=== PATIENT | female | born 1960 | race Caucasian/White ===

== ENCOUNTER 2022-03-23 09:06 | Observation (INO) ==
--- NOTE | 2022-03-09 09:30 | PAT Medication Instructions ---
Medication Instructions Date of Service March 09, 2022 Home Medications calcium carbonate 600 mg calcium (1,500 mg) tablet (Calcium) 600 mg PO QAM cholecalciferol (vitamin D3) 25 mcg (1,000 unit) capsule (Vitamin D3) 25 mcg PO QAM cyanocobalamin (vitamin B-12) 1,000 mcg tablet (Vitamin B-12) 1,000 mcg PO QAM folic acid 1 mg tablet 1 mg PO QAM multivitamin 1 tab PO QAM DO NOT take the morning of surgery calcium carbonate 600 mg calcium (1,500 mg) tablet (Calcium) 600 mg PO QAM cholecalciferol (vitamin D3) 25 mcg (1,000 unit) capsule (Vitamin D3) 25 mcg PO QAM cyanocobalamin (vitamin B-12) 1,000 mcg tablet (Vitamin B-12) 1,000 mcg PO QAM folic acid 1 mg tablet 1 mg PO QAM multivitamin 1 tab PO QAM Other Notes NOTHING TO EAT OR DRINK AFTER MIDNIGHT. If you have any questions please call us at [phone] or [phone] or [phone] or [phone]
--- NOTE | 2022-03-18 11:16 | Anesthesiology Consultation ---
Date of Service March 18, 2022 Assessment & Plan (1) Encounter for pre-operative examination: - PCP clearance S 03/16/22: "...pre op evaluation for proposed knee replacement. Overall feeling well, no new complaints...medically optimized for proposed procedure..." - Outpatient joint assessment: Patient is currently scheduled for inpatient pathway. Case discussed with Dr. Abbasi, if re-evaluated pending system levels during current pandemic/surgeon requests outpatient pathway, patient is acceptable candidate for outpatient joint program from anesthesia standpoint pending surgeon's office assessment of pt motivation/support/completion of same day joint program preop requirements. Chart Review Chart Review: Acceptable Risk for Surgery and Patient seen in Pre Admission Testing Teaching & Discussion Pre-Anesthesia Teaching/Discussion Notes: Instructed NPO after midnight before surgery, except medications with 15 cc of water. Medication instructions provided according to the PAT guidelines. History Surgery Operation Date: 03/23/22 14:45 Proposed Procedures p Right Total Knee Arthroplasty - Neri Riggs MD Height/Weight Height: 5 ft 6 in Weight: 90.718 kg Allergies Allergy/AdvReac Type Severity Reaction Status Date / Time No Known Allergies Allergy Verified 03/09/22 07:39 Medications Home Medications Medication Instructions Recorded Confirmed Last Taken calcium carbonate 600 mg calcium 600 mg PO QAM 03/09/22 03/09/22 Unknown (1,500 mg) tablet (Calcium) cholecalciferol (vitamin D3) 25 25 mcg PO QAM 03/09/22 03/09/22 Unknown mcg (1,000 unit) capsule (Vitamin D3) cyanocobalamin (vitamin B-12) 1,000 mcg PO QAM 03/09/22 03/09/22 Unknown 1,000 mcg tablet (Vitamin B-12) folic acid 1 mg tablet 1 mg PO QAM 03/09/22 03/09/22 Unknown multivitamin 1 tab PO QAM 03/09/22 03/09/22 Unknown Past Medical History Medical History (Updated 03/18/22 @ 11:18 by Shira Goff PA-C) Factor 5 Leiden mutation, heterozygous no current medications. History of COVID-29 May 2021. mild flu symptoms. no current issues. Prediabetes Pulmonary embolism 2001 & 2004. had taken coumadin, no problems since. Sleep apnea hx --- weightloss, reports subsequent negative study and d/c CPAP Patient denies h/o stroke, seizures, heart attack, heart failure, HTN or blood transfusions. Exercise / Class Metabolic Activity II 4-5 Yardwork/Stairs/Walk up hill (denies CP or SOB with 1 FOS) Past Family History Family History Mother FHx: pulmonary embolism Grandmother (Maternal) FHx: pulmonary embolism Other No family history of adverse response to anesthesia Past Surgical History Surgical History History of bilateral tubal ligation History of cholecystectomy History of colonoscopy History of Nanci-en-Y gastric bypass S/P right knee arthroscopy S/P tonsillectomy Past Anesthesia History No Hx of Anesthesia Complications and No Family Hx of Anesthesia Complications History of PONV No Hx of PONV and No Hx of Motion Sickness Social History Smoking Status: Never smoker Do You Dip or Chew Tobacco: No Hx Alcohol Use: Yes Alcohol type: wine alcohol intake frequency: a few times a month Hx Substance Use: No substance use type: does not use Review of Systems Patient denies chest pain, shortness of breath, dyspnea on exertion, reflux, fever, chills, cough, wheezing, or palpitations. Physical Exam Vital Signs Vitals BP 126/78 P 58 TEMP 97.8 SP02 99% on RA RESP 17 Physical Full cervical extension range of motion without pain TMD 3.5 finger breadths Mallampati Score 3 Dentition: removable partial plate front lower; denies Lungs: normal respiratory effort. Clear throughout to auscultation, no adventitious breath sounds Cardiac: regular rate and rhythm, no murmurs noted Carotid arteries: negative bruit bilat Lab Results Anesthesia Preop Results Results Anesthesia Widget: WBC 6.45 K/ul (4.8-10.8) 03/18/22 Hgb 13.2 g/dl (12.0-16.0) 03/18/22 Hct 41.0 % (34.1-44.9) 03/18/22 Plt 279 K/uL (130-400) 03/18/22 Na 140 mmol/L (136-145) 03/18/22 K 4.0 mmol/L (3.5-5.1) 03/18/22 Cl 105 mmol/L (98-107) 03/18/22 CO2 31 mmol/L (21-32) 03/18/22 BUN 17 mg/dl (6-23) 03/18/22 Creat 0.74 mg/dl (0.6-1.2) 03/18/22 Glucose Level 115 mg/dl (70-99(Fasting)) H 03/18/22 PT 10.5 Seconds (9.0-12.0) 03/18/22 PTT 25.7 Seconds (21.0-31.0) 03/18/22 INR 1.0 (0.9-1.1) 03/18/22 HA1c 5.6 % (4.5-5.6) 03/18/22 Urine Color Yellow 03/18/22 Urine Appearance Clear (Clear) 03/18/22 Urine pH 5.0 (4.5-7.5) 03/18/22 Urine Specific [place] 1.021 (1.000-1.030) 03/18/22 Urine Protein Negative (Negative) 03/18/22 Urine Glucose (UA) Negative (Negative) 03/18/22 Urine Ketones Negative (Negative) 03/18/22 Urine Blood Negative (Negative) 03/18/22 Urine Nitrite Negative (Negative) 03/18/22 Urine Bilirubin Negative (Negative) 03/18/22 Urine Urobilinogen Negative (Negative) 03/18/22 Urine Leukocyte Esterase Negative (Negative) 03/18/22 Blood Type A Positive 03/18/22 Antibody Screen NEGATIVE 03/18/22 Testing Electrocardiogram Date: 05/15/21 NSR, rate [address] abnormality Chest X-Ray Date: 03/18/22 Upper abdominal surgical clips are incidentally noted. Lung volumes are normal. Lungs are clear. There is no pneumothorax or pleural effusion. Cardiac size is n ormal. Mediastinal contours are normal. There is no evidence for pulmonary edema. IMPRESSION: No acute cardiopulmonary findings. COVID-19 Risk Screen Screening Information COVID-19 Screen Date: 03/18/22 Exposure 21 Days Family/Household +COVID Last 21 Days: No Exposure 10 Days Any COVID Exposure Last 10 Days: No Symptoms Last 10 Days Experienced COVID Sx Last 10 Days: No + COVID 0-90 Days COVID + in Last 0-90 Days: No
--- NOTE | 2022-03-22 16:44 | History & Physical Report ---
Date of Service March 22, 2022 Assessment & Plan (1) Primary osteoarthritis of right knee: Plan: Treatment options discussed with patient. She has failed conservative measures. Risks, benefits and alternatives to surgery including but not limited to infection, DVT, pain, stiffness, need for revision surgery, damage to blood vessels, damage to nerves, PE, , were discussed with the patient and they wish to proceed. Plan on right total knee arthroplasty scheduled for 03/23/22 at [facility] with Dr. Riggs. All questions answered. Will plan on outpatient PT post op. Xarelto 10mg daily for 1 mo post op for DVT prophylaxis. She will follow up in the office post operatively. History of Present Illness Chief Complaint: Right knee pain Primary Care Provider: NO PCP 61yo female with PMHx significant for PE, factor V leiden who presents with ongoing right knee pain. Pain is interfering with her daily activity. She has failed conservative measures and would like to proceed with surgical intervention. Patient denies headaches, sweats, fevers, chills, double vision, blurred vision, cough, sore throat, dysphagia, chest pain, sob, wheezing, n/v/d/c, numbness, tingling, fatigue, urinary symptoms, mood disorders. ROS positive for right knee pain and stiffness. Allergies Allergy/AdvReac Type Severity Reaction Status Date / Time No Known Allergies Allergy Verified 03/09/22 07:39 Home Medications Medication Instructions Recorded Confirmed Type calcium carbonate 600 mg calcium 600 mg PO QAM 03/09/22 03/09/22 History (1,500 mg) tablet (Calcium) cholecalciferol (vitamin D3) 25 25 mcg PO QAM 03/09/22 03/09/22 History mcg (1,000 unit) capsule (Vitamin D3) cyanocobalamin (vitamin B-12) 1,000 mcg PO QAM 03/09/22 03/09/22 History 1,000 mcg tablet (Vitamin B-12) folic acid 1 mg tablet 1 mg PO QAM 03/09/22 03/09/22 History multivitamin 1 tab PO QAM 03/09/22 03/09/22 History Past Med/Surg History Medical History (Updated 03/22/22 @ 16:43 by Sergio Yadav PA-C) Factor 5 Leiden mutation, heterozygous no current medications. History of COVID-29 May 2021. mild flu symptoms. no current issues. Prediabetes Pulmonary embolism 2001 & 2004. had taken coumadin, no problems since. Sleep apnea hx --- weightloss, reports subsequent negative study and d/c CPAP Surgical History History of bilateral tubal ligation History of cholecystectomy History of colonoscopy History of Nanci-en-Y gastric bypass S/P right knee arthroscopy S/P tonsillectomy Family History Mother FHx: pulmonary embolism Grandmother (Maternal) FHx: pulmonary embolism Other No family history of adverse response to anesthesia Social History Smoking Status: Never smoker Second Hand Exposure: No; Hx Alcohol Use: Yes Alcohol type: wine Hx Substance Use: No Preferred Language: [place] Communication Ability: Effective Cook Chef Required: No Beliefs That Will Affect Care: None Current Living Situation: Spouse Feels Safe at Home: Yes Assistive Devices: Denture - Lower Review of Systems All systems reviewed & are unremarkable except as noted in HPI & below Physical Exam Constitutional: well developed and well nourished; no acute distress Eyes: PERRL, conjunctivae normal, anicteric sclerae ENMT: external ear and nose normal, oropharynx normal Neck: trachea midline, no thyromegaly Respiratory: normal respiratory effort, lungs clear to auscultation Cardiovascular: RRR, no murmur, no edema Musculoskeletal: Right knee: Varus alignment. Mild effusion. Medial joint line tenderness. ROM 5-100 degrees. Stable to valgus and varus stress. Skin: no rashes, warm and dry Neurologic: patellar DTR's 2+ bilat, sensation intact Psychiatric: A+Ox3, euthymic affect Results & Data ([facility]) Diagnostic Findings Right knee radiographs demonstrate varus alignment, significant joint space n arrowing medial compartment, bone on bone. There is tricompartmental degenerative changes with periarticular osteophyte formation.
[~2022-03-23 09:06] MED LIST: ACETAMINOPHEN 500 MG TAB PO SCH; BUPIVACAINE 0.5 % 5 MG/1 ML PF 10ML VIAL ONE; CeleBREX 200 MG CAP PO SCH; FAMOTIDINE 20 MG TAB PO SCH; GABAPENTIN 600 MG DOSE PO SCH; LR 500ML BOLUS, THEN 15ML/HR IV SCH; METOCLOPRAMIDE HCL 10 MG TABLET PO SCH; ROPIVACAINE 0.5% 5 MG/ML 30 ML VIAL ONE; ROPIVACAINE 0.5% HCL/PF 150 MG, BUPIVACAINE 0.75% MPF 20 ML, EPINEPHrine 30MG/30ML (OR ... INFIL SCH; TRANEXAMIC ACID 1,000 MG **IV Intra-op IV SCH; TRANEXAMIC ACID 1,000 MG **IV Pre-op IV SCH; ceFAZolin 2000MG 2,000 MG/15 ML SYR IV SCH; dexAMETHasone 4 MG TAB PO SCH
--- NOTE | 2022-03-23 09:33 | History & Physical Bridge Note ---
Date of Service March 23, 2022 History & Physical Bridge Note I have examined the patient, reviewed the History & Physical and in the interval since the performance of the History & Physical I have noted the following changes of clinical significance: no changes noted
[2022-03-23] MEDS ORDERED: DEXAMETHASONE SOD INJ 4 MG/ML VIAL ONE (09:55)
[2022-03-23] MEDS ORDERED: MIDAZOLAM HCL 1 MG/ML 2ML VIAL ONE (09:55)
[2022-03-23] MEDS ORDERED: LIDOCAINE 2% MPF LOCAL 5 ML VIAL INFIL ONE (09:55)
[2022-03-23] MEDS ORDERED: fentaNYL citrate 100 MCG/2 ML VIAL ONE (09:55)
[2022-03-23] MEDS ORDERED: PROPOFOL IV EMULSION 10 MG/ML 20 ML VIAL IV ONE ×3 (09:55→12:21)
[2022-03-23] MEDS ORDERED: ORTHO JOINT ANESTHETIC ONE (10:39)
[2022-03-23] MEDS ORDERED: ATROPINE SULFATE 0.1 MG/ML 10ML SYR IV PRN (10:42)
[2022-03-23] MEDS ORDERED: HYDROmorphone INJ 1 MG/ML SYRINGE IV PRN (10:42)
[2022-03-23] MEDS ORDERED: KETOROLAC 30 MG/ML VIAL IV PRN (10:42)
[2022-03-23] MEDS ORDERED: ePHEDrine sulfate 50 MG/ML AMP IV PRN (10:42)
[2022-03-23] MEDS ORDERED: ONDANSETRON INJ 2 MG/ML 2 ML VIAL IV PRN ×2 (10:42→15:30)
[2022-03-23] MEDS ORDERED: ePHEDrine sulfate 50 MG/ML SYR ONE (11:19)
--- NOTE | 2022-03-23 12:54 | Operative Report ---
Post Operative Report Pre & Post Diagnosis Operation Date: 03/23/22 11:50 Pre-Op Diagnosis: Right Knee Osteoarthritis Post-Op Diagnosis: Right Knee Osteoarthritis I identified the patient and participated in the time-out.: Yes Procedure Operation Date: 03/23/22 11:50 Actual Procedures p Right Total Knee Arthroplasty(Right), lateral release, mya superficial wound VAC- Neri Riggs MD Surgeon Neri Riggs MD Internal Communications Manager Slava Yadav Estimated Blood Loss 5 Findings Consistent with Post-Op Diagnosis Specimens Bone cuts Drains 2 Hemovac Anesthesia Type MAC Spinal Regional Complications none Disposition Accompanied Patient To Recovery: No Disposition: Recovery Room Indications 61-year-old female with end-stage bilateral knee osteoarthritis failed conservative management. Radiographs of the right knee pertinent to this procedure demonstrate a varus knee [id number] medial compartment and moderately advanced patellofemoral osteoarthritis. Description of Procedure Patient was taken to the operating room placed supine on the operating table and anesthetized under spinal MAC regional block anesthesia. Exam under anesthesia demonstrated 0 through 125 degrees range of motion no effusion no instability varus knee. A pneumatic tourniquet was placed about the moderately obese thigh of the right lower extremity. The right lower extremity was prepped and draped in usual sterile fashion. The leg was elevated exsanguinated with an Esmarch bandage and the pneumatic tourniquet was raised to 325 mm mercury. An anterior incision was made across the right knee. The skin was incised longitudinally subcutaneous flaps were elevated and an incision was made through the medial retinaculum extending up into the mid third of the quadriceps tendon and extended down to the medial tibial tubercle. Intra-articular findings demonstrated medial compartment osteoarthritis [id number] medial compartment with grade 3-4 changes on the patella with intra-articular osteophytes on the patella and peripheral osteophytes. Grade 3 trochlea osteoarthritis. The knee was exposed by excising the infrapatellar fat pad, excising the meniscal remnants and anterior cruciate ligament. Any inflamed synovial tissue was resected. The fat pad over the anterior femur was resected for placement of the component in that area. The lateral synovial bands were release. The femur was exposed. The custom femoral cutting block was pinned in position. The distal femoral cutting block was applied. The distal femoral cut was made with the oscillating saw. The size 8, 4-in-1 cutting block was placed. The anterior and posterior chamfer cuts were made. The knee was extended and a subperiosteal peel lateral release was performed around the patella. The patella width was measured and width was reproduced using freehand cut technique. The 32 millimeter symmetrical patella was used. 3 drill holes are made for the pegs. The tibia was exposed. A custom tibial cutting block was positioned and drill holes were made for the cutting guide. Cutting guide was placed and the proximal cut was made with the oscillating saw. All osteophytes were resected. The lamina proj mgr was used to assess ligamentous balance and the ligaments were balanced in extension and flexion. The tibia was reexposed and measured for a size E tibial component. This was externally rotated in line with the tibial tubercle and the fixation pins were drilled. The proximal tibia was fashioned with the drill and punch. The size 8 CR femoral trial was inserted. The trial MC inserts were used. The 10 mm insert gave balanced ligaments through full range of motion. The patella tracked with some lateral tilt and slight lift off so a lateral release was performed preserving the synovium and the patella tracks centrally. the trials were removed. The orthomix anesthetic cocktail was injected per protocol. The knee was then copiously irrigated with pulsatile lavage saline solution. The final components were cemented with Refobacin bone cement. The final components were persona size 8 narrow CR right femoral component, right E tibial component, right 10 MC tibial polyethylene and 32 symmetrical patella. After the cement cured with the knee in full extension the Betadine soak was used per protocol. The knee joint was copiously irrigated with pulsatile lavage saline solution . 2 drains were brought out laterally and connected to a Hemovac. The quadriceps tendon and medial retinaculum were closed with interrupted [id number] #1 Vicryl sutures. The knee was taken through a full range of motion and repair was secure. Range of motion 0 through 135 degrees. The subcutaneous tissues were closed with 2-0 Vicryl sutures and skin was closed with strata fix suture and Prineo glue system. A mya superficial wound VAC was applied and the patient tolerated the procedure well. Slava MCCOY my physician legal administrative assistant to space for legal administrative assistant and was integral part and all aspects of the procedure, he assisted in soft tissue retraction, instrument management ,leg positioning, the closure, the mya wound VAC and will participate in the postoperative care of the patient. I attest to the content of the Intraoperative Record and any orders documented therein. Any exceptions are noted below.
--- NOTE | 2022-03-23 14:11 | XRay Report ---
XR knee RT 1 or 2V routine HISTORY: 61 years-old Female Surgical Post Op right knee total joint arthroplasty COMPARISON: None TECHNIQUE: 2 views the right knee FINDINGS: Total joint arthroplasty with patellar resurfacing. Anterior midline skin karissa are noted along wit h expected postoperative soft tissue swelling with deep tissue air. Surgical drainage catheter in jeyson ce. No acute fracture or unexpected opaque foreign body. IMPRESSION: Total joint arthroplasty with expected postoperative changes. ACT 112: Negative or not required by law. The above report was generated using voice recognition software. It may contain grammatical, syntax o r spelling errors. Electronically signed by: Tono Houston M.D. 03/23/2022 2:10 PM
--- NOTE | 2022-03-23 14:33 | Anesthesiology Progress Note ---
Date of Service March 23, 2022 Anesthesia Post Procedure Vital Signs Vital Signs: Temp Pulse Pulse Resp BP Pulse Ox O2 Del Method 03/23/22 14:20 36.4 C L 70 20 100/63 96 Nasal Cannula 03/23/22 14:10 66 16 104/57 L 95 Nasal Cannula 03/23/22 14:00 68 13 99/56 L 95 Nasal Cannula 03/23/22 13:50 68 17 102/59 L 95 Nasal Cannula 03/23/22 13:40 36.6 C 76 16 97/59 L 96 Room Air 03/23/22 09:47 36.3 C L 63 20 146/79 H 98 Room Air O2 Flow Rate 03/23/22 14:20 2 03/23/22 14:10 2 03/23/22 14:00 2 03/23/22 13:50 2 03/23/22 13:40 03/23/22 09:47 Transfer of Care Handoff Completed per policy Notes Mental Status: alert / awake / arousable Patient Amnestic to Procedure: Yes Nausea / Vomiting: adequately controlled Pain: adequately controlled Airway Patency, RR, SpO2: stable & adequate BP & HR: stable & adequate Hydration State: stable & adequate Neuraxial Anesthesia: was administered and sensory block is resolving Anesthetic Complications: no major complications apparent
[2022-03-23] MEDS ORDERED: MAGNESIUM HYDROXIDE SUSP 30 ML UDC PO PRN (15:30)
[2022-03-23] MEDS ORDERED: bisacodyL 10 MG SUPP PR PRN (15:30)
[2022-03-23] MEDS ORDERED: HYDROmorphone INJ 0.5 MG/0.5 ML SYR IV PRN (15:30)
[2022-03-23] MEDS ORDERED: NALOXONE HCL 0.4 MG/1 ML VIAL/CARP IV PRN (15:30)
[2022-03-23] MEDS ORDERED: METOCLOPRAMIDE HCL INJ 5 MG/ML 2 ML VIAL IV PRN (15:30)
[2022-03-23] MEDS ORDERED: SODIUM CHLORIDE 0.9% 1000ML 1,000 ML IV SCH (15:30)
[2022-03-23] MEDS: ACETAMINOPHEN 500 MG TAB PO SCH ×2 (16:41→20:37)
[2022-03-23] MEDS: ceFAZolin 2000MG 2,000 MG/15 ML SYR IV SCH (18:18)
[2022-03-23] MEDS: DOCUSATE SODIUM 100 MG CAP PO SCH (20:36)
[2022-03-23] MEDS: SENNA 8.6 MG TAB PO SCH (20:38)
[2022-03-24] MEDS: ceFAZolin 2000MG 2,000 MG/15 ML SYR IV SCH (03:29)
[2022-03-24] MEDS ORDERED: LR 500ML BOLUS, THEN 15ML/HR IV SCH (06:00)
[2022-03-24] MEDS ORDERED: ROPIVACAINE 0.5% HCL/PF 150 MG, BUPIVACAINE 0.75% MPF 20 ML, EPINEPHrine 30MG/30ML (OR ... INFIL SCH (06:00)
[2022-03-24] MEDS: ACETAMINOPHEN 500 MG TAB PO SCH ×3 (06:17→21:40)
--- NOTE | 2022-03-24 06:43 | Orthopedic Progress Note ---
Date of Service March 24, 2022 Assessment & Plan (1) Primary osteoarthritis of right knee: Plan: Postop day 1 right total knee arthroplasty -PT/OT -Pain management as written -A.m. labs are pending -DVT prophylaxis: SCDs, teds, Xarelto 10 mg daily -Discharge planning: Plan on discharge home with plans on attending outpatient PT. Plan on discharge home today as long as therapy goes well and patient remained stable, as well as if her ride is able to get to the hospital due to the weather. Admission and Anticipated Discharge Date Admission Date: March 23, 2022 Supervising Physician Co-Signing Physician Notes Patient seen and examined. Agree with DARIUS Yadav's note as above. Patient doing very well. Describes only 1 out of 10 pain in her knee after exercise. She is mobilizing on her own with a walker without difficulty. Unfortunately, her ride was not able to make it today due to the weather. Plan for discharge tomorrow. Subjective Patient is resting in bed comfortably. Pain well controlled currently. She has no other complaints. Denies chest pain, shortness of breath, dizziness/lightheadedness, nausea/vomiting/diarrhea. Review of Systems Review of Systems: All systems reviewed & are unremarkable except as noted in Subjective Physical Exam Physical Exam: Right knee: Dressing is clean, dry, intact. Toes mobile with good dorsiflexion. No calf tenderness. Able to do a straight leg raise. Distal neurovascular status and sensation intact. Results & Data ([facility]) Vital Signs (Past 12 Hours) Vital Signs Temp Pulse Resp BP Pulse Ox O2 Del Method 03/24/22 03:33 36.7 C 74 16 107/66 94 Room Air 03/23/22 22:11 36.7 C 73 18 106/66 95 Room Air
[2022-03-24] MEDS: CALCIUM CARBONATE 1250MG TAB PO SCH (08:24)
[2022-03-24] MEDS: FOLIC ACID 1 MG TAB PO SCH (08:25)
[2022-03-24] MEDS: CYANOCOBALAMIN (B-12) 500 MCG TABLET PO SCH (08:25)
[2022-03-24] MEDS: RIVAROXABAN 10 MG TABLET PO SCH (08:25)
[2022-03-24] MEDS: CeleBREX 200 MG CAP PO SCH (08:25)
[2022-03-24] MEDS: MULTIVITAMIN TAB PO SCH (08:25)
[2022-03-24] MEDS: CHOLECALCIFEROL 1,000 UNITS 25 MCG TAB PO SCH (08:25)
[2022-03-24] MEDS: DOCUSATE SODIUM 100 MG CAP PO SCH ×2 (08:26→19:32)
[2022-03-24] MEDS ORDERED: MULTIVITAMIN TAB PO SCH (09:00)
[2022-03-24 09:05] LABS: Hematocrit (blood only) 34.7 % (34.1-44.9); Hemoglobin 11.4 g/dl (12.0-16.0); Mean Corpuscular Hemoglobin 29.5 pg (25.0-34.0); Mean Corpuscular Hgb Conc 32.9 g/dL (32.0-36.0); Mean Corpuscular Volume 89.9 fL (80.0-100.0); Mean Platelet Volume 11.7 fL (9.4-12.3); Platelet Count 249 K/uL (130-400); RDW Coefficient of Variation 12.5 % (11.5-14.5); RDW Standard Deviation 40.6 fL (36.4-46.3); Red Blood Count 3.86 M/uL (3.93-5.22); White Blood Count 16.09 K/ul (4.8-10.8)
[2022-03-24 09:26] LABS: Calcium 8.3 mg/dl (8.5-10.1); Creatinine Clr Calc Pharmacy 87.2 ml/min; Est GFR (African American) 95.9 ml/min; Est GFR (Non-African American) 82.8 ml/min; Potassium 4.3 mmol/L (3.5-5.1)
[2022-03-24] MEDS: oxyCODONE HCL IR 5 MG TAB (IMMEDIATE RELEASE) PO PRN ×2 (19:30→23:37)
[2022-03-24] MEDS: SENNA 8.6 MG TAB PO SCH (19:31)
[2022-03-25] MEDS: ACETAMINOPHEN 500 MG TAB PO SCH ×3 (05:38→22:34)
[2022-03-25] MEDS: CYANOCOBALAMIN (B-12) 500 MCG TABLET PO SCH (08:16)
[2022-03-25] MEDS: MULTIVITAMIN TAB PO SCH (08:16)
[2022-03-25] MEDS: RIVAROXABAN 10 MG TABLET PO SCH (08:16)
[2022-03-25] MEDS: CALCIUM CARBONATE 1250MG TAB PO SCH (08:16)
[2022-03-25] MEDS: FOLIC ACID 1 MG TAB PO SCH (08:16)
[2022-03-25] MEDS: CHOLECALCIFEROL 1,000 UNITS 25 MCG TAB PO SCH (08:16)
[2022-03-25] MEDS: DOCUSATE SODIUM 100 MG CAP PO SCH ×2 (08:16→20:04)
[2022-03-25] MEDS: CeleBREX 200 MG CAP PO SCH (08:16)
--- NOTE | 2022-03-25 09:28 | Orthopedic Progress Note ---
Date of Service March 25, 2022 Assessment & Plan (1) Primary osteoarthritis of right knee: Plan: Postop day 2 right total knee arthroplasty -PT/OT -Pain management as written -DVT prophylaxis: SCDs, teds, Xarelto 10 mg daily -Discharge planning: Plan on discharge home with plans on attending outpatient PT. Plan on discharge home today. Nursing to ambulate patient later this AM. If she remains without LH on ambulation, plan for dc to home. Admission and Anticipated Discharge Date Admission Date: March 23, 2022 Subjective POD 2 Pt working with PT this AM. They stated while walking down the hallway, pt became somewhat lightheaded. They came back to her room. Currently sitting on the edge of bed. Systolic BP in the 90's. Pt feeling well currently. Denies SOB,CP. Physical Exam Physical Exam: Reuben Dressing intact. Hemovac has been dc'd. Knee with swelling consistent with surgery. Calves, soft, NT. NV intact. Results & Data ([facility]) Vital Signs (Past 12 Hours) Vital Signs Temp Pulse Resp BP Pulse Ox O2 Del Method 03/25/22 07:40 36.4 C L 66 16 110/76 96 Room Air
[2022-03-25] MEDS: oxyCODONE HCL IR 5 MG TAB (IMMEDIATE RELEASE) PO PRN ×2 (10:08→20:04)
[2022-03-25] MEDS ORDERED: SODIUM CHLORIDE 0.9% 1000ML 500 ML IV ONE (14:26)
[2022-03-25 14:55] LABS: Hematocrit (blood only) 34.2 % (34.1-44.9); Hemoglobin 10.9 g/dl (12.0-16.0); Mean Corpuscular Hemoglobin 29.1 pg (25.0-34.0); Mean Corpuscular Hgb Conc 31.9 g/dL (32.0-36.0); Mean Corpuscular Volume 91.2 fL (80.0-100.0); Mean Platelet Volume 11.8 fL (9.4-12.3); Platelet Count 233 K/uL (130-400); RDW Standard Deviation 42.5 fL (36.4-46.3); Red Blood Count 3.75 M/uL (3.93-5.22); White Blood Count 8.35 K/ul (4.8-10.8)
[2022-03-25 15:15] LABS: BUN Creatinine Ratio 28.7 (10-20); Calcium 8.3 mg/dl (8.5-10.1); Creatinine Clr Calc Pharmacy 71.5 ml/min; Est GFR (African American) 75.4 ml/min; Potassium 3.9 mmol/L (3.5-5.1)
[2022-03-25] MEDS: SENNA 8.6 MG TAB PO SCH (20:04)
[2022-03-26] MEDS: ACETAMINOPHEN 500 MG TAB PO SCH (06:00)
[2022-03-26] MEDS: oxyCODONE HCL IR 5 MG TAB (IMMEDIATE RELEASE) PO PRN (07:55)
--- NOTE | 2022-03-26 08:16 | Orthopedic Progress Note ---
Date of Service March 26, 2022 Assessment & Plan (1) Primary osteoarthritis of right knee: Plan: Postop day 3 right total knee arthroplasty -PT/OT -Pain management as written -DVT prophylaxis: SCDs, teds, Xarelto 10 mg daily -Discharge planning: Plan on discharge home with plans on attending outpatient PT. Plan on discharge home today. Nursing to ambulate patient later this AM. If she remains without LH on ambulation, plan for dc to home. Admission and Anticipated Discharge Date Admission Date: March 23, 2022 Subjective POD 3 Pt feeling well currently, states much better today. Denies SOB,CP. Physical Exam Physical Exam: Reuben Dressing intact. Knee with swelling consistent with surgery. Calves, soft, NT. NV intact. Results & Data ([facility]) Vital Signs (Past 12 Hours) Vital Signs Temp Pulse Resp BP Pulse Ox O2 Del Method 03/26/22 07:47 36.6 C 73 16 131/83 97 Room Air 03/25/22 23:00 36.6 C 64 16 102/64 95 Room Air
[2022-03-26] MEDS: MULTIVITAMIN TAB PO SCH (08:18)
[2022-03-26] MEDS: RIVAROXABAN 10 MG TABLET PO SCH (08:18)
[2022-03-26] MEDS: CALCIUM CARBONATE 1250MG TAB PO SCH (08:18)
[2022-03-26] MEDS: CeleBREX 200 MG CAP PO SCH (08:18)
[2022-03-26] MEDS: CYANOCOBALAMIN (B-12) 500 MCG TABLET PO SCH (08:18)
[2022-03-26] MEDS: CHOLECALCIFEROL 1,000 UNITS 25 MCG TAB PO SCH (08:18)
[2022-03-26] MEDS: DOCUSATE SODIUM 100 MG CAP PO SCH (08:18)
[2022-03-26] MEDS: FOLIC ACID 1 MG TAB PO SCH (08:18)
--- NOTE | 2022-03-27 18:10 | Discharge Summary ---
Date of Service March 27, 2022 Admission HPI Per Admitting Provider 61yo female with PMHx significant for PE, factor V leiden who presents with ongoing right knee pain. Pain is interfering with her daily activity. She has failed conservative measures and would like to proceed with surgical intervention. Patient denies headaches, sweats, fevers, chills, double vision, blurred vision, cough, sore throat, dysphagia, chest pain, sob, wheezing, n/v/d/c, numbness, tingling, fatigue, urinary symptoms, mood disorders. ROS positive for right knee pain and stiffness. Admission Exam Per Admitting Provider Constitutional: well developed and well nourished; no acute distress Eyes: PERRL, conjunctivae normal, anicteric sclerae ENMT: external ear and nose normal, oropharynx normal Neck: trachea midline, no thyromegaly Respiratory: normal respiratory effort, lungs clear to auscultation Cardiovascular: RRR, no murmur, no edema Musculoskeletal: Right knee: Varus alignment. Mild effusion. Medial joint line tenderness. ROM 5-100 degrees. Stable to valgus and varus stress. Skin: no rashes, warm and dry Neurologic: patellar DTR's 2+ bilat, sensation intact Psychiatric: A+Ox3, euthymic affect Principal Diagnosis Right knee osteoarthritis Discharge Exam Reuben Dressing intact. Knee with swelling consistent with surgery. Calves, soft, NT. NV int Constitutional WD/WN, vitals as above Discharge Data Allergies Allergy/AdvReac Type Severity Reaction Status Date / Time No Known Allergies Allergy Verified 03/23/22 09:43 Procedures Performed Operation Date: 03/23/22 11:50 Actual Procedures p Right Total Knee Arthroplasty(Right) - Neri Riggs MD Ordered Studies 03/23/22 05:00 US - OR guided needle placemen Routine Hospital Course (1) Primary osteoarthritis of right knee: Postop day 3 right total knee arthroplasty -PT/OT -Pain management as written -DVT prophylaxis: SCDs, teds, Xarelto 10 mg daily -Discharge planning: Plan on discharge home with plans on attending outpatient PT. Plan on discharge home today. Nursing to ambulate patient later this AM. If she remains without LH on ambulation, plan for dc to home. Postop day 2 right total knee arthroplasty -PT/OT -Pain management as written -DVT prophylaxis: SCDs, teds, Xarelto 10 mg daily -Discharge planning: Plan on discharge home with plans on attending outpatient PT. Plan on discharge home today. Nursing to ambulate patient later this AM. If she remains without LH on ambulation, plan for dc to home. Postop day 1 right total knee arthroplasty -PT/OT -Pain management as written -A.m. labs are pending -DVT prophylaxis: SCDs, teds, Xarelto 10 mg daily -Discharge planning: Plan on discharge home with plans on attending outpatient PT. Plan on discharge home today as long as therapy goes well and patient remained stable, as well as if her ride is able to get to the hospital due to the weather. Lab Results 03/23/22 03/24/22 03/24/22 Range/Units Unknown 08:28 08:28 WBC 16.09 H (4.8-10.8) K/ul RBC 3.86 L (3.93-5.22) M/uL Hgb 11.4 L (12.0-16.0) g/dl Hct 34.7 (34.1-44.9) % MCV 89.9 (80.0-100.0) fL MCH 29.5 (25.0-34.0) pg MCHC 32.9 (32.0-36.0) g/dL RDW Std Deviation 40.6 (36.4-46.3) fL RDW Coeff of Emeterio 12.5 (11.5-14.5) % Plt Count 249 (130-400) K/uL MPV 11.7 (9.4-12.3) fL Sodium 139 (136-145) mmol/L Potassium 4.3 (3.5-5.1) mmol/L Chloride 106 (98-107) mmol/L Carbon Dioxide 28 (21-32) mmol/L Anion Gap 5 (3-11) BUN 20 (6-23) mg/dl Creatinine 0.77 (0.6-1.2) mg/dl Est Cr Clr Drug Dosing 87.2 ml/min Est GFR ( Amer) 95.9 ml/min Est GFR (Non-Af Amer) 82.8 ml/min BUN/Creatinine Ratio 26.0 H (10-20) Glucose 117 H (70-99(Fasting)) mg/dl Calcium 8.3 L (8.5-10.1) mg/dl SARS-CoV-2, RNA, NAAT NEGATIVE (NEGATIVE) 03/25/22 03/25/22 Range/Units 14:34 14:34 WBC 8.35 (4.8-10.8) K/ul RBC 3.75 L (3.93-5.22) M/uL Hgb 10.9 L (12.0-16.0) g/dl Hct 34.2 (34.1-44.9) % MCV 91.2 (80.0-100.0) fL MCH 29.1 (25.0-34.0) pg MCHC 31.9 L (32.0-36.0) g/dL RDW Std Deviation 42.5 (36.4-46.3) fL RDW Coeff of Emeterio 13.0 (11.5-14.5) % Plt Count 233 (130-400) K/uL MPV 11.8 (9.4-12.3) fL Sodium 140 (136-145) mmol/L Potassium 3.9 (3.5-5.1) mmol/L Chloride 106 (98-107) mmol/L Carbon Dioxide 30 (21-32) mmol/L Anion Gap 4 (3-11) BUN 27 H (6-23) mg/dl Creatinine 0.94 (0.6-1.2) mg/dl Est Cr Clr Drug Dosing 71.5 ml/min Est GFR ( Amer) 75.4 ml/min Est GFR (Non-Af Amer) 65.0 ml/min BUN/Creatinine Ratio 28.7 H (10-20) Glucose 103 H (70-99(Fasting)) mg/dl Calcium 8.3 L (8.5-10.1) mg/dl SARS-CoV-2, RNA, NAAT (NEGATIVE) Total Time Total Time Spent Total Time Spent (In Minutes): 20 Discharge Plan Discharge Items Patient Disposition: Home - Self-Care Reason For Visit: Right Knee Osteoarthritis Discharge Diagnosis: Right knee osteoarthritis Activity: Per Instructions section Non-emergency contact: Surgeon Call non-emergency contact if: you have any medication questions, your pain is not controlled, your pain is concerning for you, you have a fever, your temperature is above 101, your wound has increased redness and your wound has increased drainage Follow-up/Referrals: Todd Barry DO [Primary Care Provider] - Diet: Regular Addtl Attending Provider Instructions: ACTIVITY RECOMMENDATIONS: SELF CARE INSTRUCTIONS AFTER TOTAL KNEE REPLACEMENT A. You may need to continue a physical therapy program after discharge from the hospital. There are several options available to you. Your doctor will assist you in selecting the best one for you. 1. An out-patient facility 2 to 3 times a week for therapy or home therapy. 2. Continue working on all exercises taught to you in the hospital. Your goals should be to increase bending of your knee to 90 degrees and beyond and to fully straighten your knee. B. You may progress at your own pace from walking with a walker or crutches to a cane; then to no assistive devices. C. Make walking a part of your daily routine. Be up as much as comfortable with rest periods throughout the day. Rest with leg elevation is very important. Use the ice wrap frequently for the first 3-4 weeks. D. There are no restrictions on activities. You may ride in a car, shop, participate in parking assistant and all social activities. E. Wear the long elastic stockings (JOSE hose) 20 hours a day for 2 weeks after surgery. They can be removed several times a day for laundering and for a bath. F. You may shower, no tub baths until cleared by your doctor. SPECIAL CARE INSTRUCTIONS: VERY IMPORTANT TO READ AND REVIEW A. There are a few signs you need to watch for after you are home. Call [facility] if you notice any of the followin. Increased severe knee pain. Some pain is expected especially when you exercise. 2. Increased swelling in your leg or knee; pain or swelling of the calf muscle in either lower leg. 3. Any fluid drainage from the incision. 4. Shortness of breath or chest pain. B. Please call [facility] at if you have any concerns or questions about your operation or recovery. The doctor or his nurse will return your call promptly. C. You must take antibiotics before dental work, bladder, bowel or other surgery. Your doctor will provide you with a permanent care to carry describing this precaution. IMPORTANT: * REMEMBER TO TAKE XARELTO (RIVAROXABAN) 10MG PO DAILY FOR 4 WEEKS UNLESS OTHERWISE DIRECTED. THIS IS YOUR BLOOD THINNER. * CALL IF INCREASED PAIN, REDNESS, DRAINAGE OR FEVER GREATER THAT 101. * WEAR JOSE HOSE 20 HOURS PER DAY FOR 2 WEEKS. This is a large suction dressing covering your incision. This will help pull any excess drainage from the wound and allow your incision to heal properly. You may shower with this if you can keep the unit outside of the shower. If any bleeding or leakage is noted please call your doctor's office. This will remain on your incision for 7 days and then should be removed. This can be done yourself or by the home nursing staff if applicable. The entire unit is disposable once removed. Once removed, keep incision clean and dry. If redness or drainage is noted, please call your surgeon. Once removed please follow below instructions: This is a mesh tape dressing that is covered with glue. It should remain in place until the incision is properly healed, usually 10-14 days. This dressing is designed to naturally slough off. You may trim the excess mesh tape as it peels off. Incision may be briefly wet in a shower. Dry immediately by blotting with a clean, dry towel. Do not bath or swim until instructed by your doctor. Do not scratch, rub, or pick at the dressing. Do not apply any topical ointments or lotions until dressing is completely removed and/or instructed by your doctor. There may be a small piece of suture material at one end of your incision. Do not pull or trim this. If it is bothersome or catching on clothing, you may cover it with a band-aid. IF INCISION IS LEAKING THROUGH DRESSING, CALL THE OFFICE . FOLLOW UP VISIT: If appointment is not already scheduled: Please call [facility] to make a follow-up appointment for 2 weeks after your surgery at . Pending Studies at Discharge: No Stand-Alone Forms: My WritePath, Smoking Cessation Medications and DC Order Prescriptions: New acetaminophen [Tylenol Extra Strength] 500 mg Tablet 1,000 mg PO Q8 Qty: 60 0RF oxycodone 5 mg Tablet 5 - 10 mg PO .Q4h-6h MDD 6 PRN (Reason: pain) Qty: 30 0RF Rx Instructions: Ongoing therapy, Dr. Riggs supervising Xarelto 10 mg Tablet 10 mg PO DAILY Qty: 30 0RF Continued multivitamin Tablet 1 tab PO QAM cyanocobalamin (vitamin B-12) [Vitamin B-12] 1,000 mcg Tablet 1,000 mcg PO QAM calcium carbonate [Calcium 600] 600 mg calcium (1,500 mg) Tablet 600 mg PO QAM folic acid 1 mg Tablet 1 mg PO QAM cholecalciferol (vitamin D3) [Vitamin D3] 25 mcg (1,000 unit) Capsule 25 mcg PO QAM Discharge Orders: Discharge Order (Routine); Ordered 03/26/22 Ordered By: Nic Garcia Admission Data Admit Date/Time: 03/23/22 13:39 Attending Provider: Neri Riggs Admit Provider: Neri Riggs Primary Care Provider: Todd Barry V. Other Interventions: Discharge Summary Assessment (RN) Last Done: 03/26/22 10:55
== END 2022-03-26 11:45 | disposition home or self-care (01) ==
LOC: 3N 09:06 → ASU 09:06

== ENCOUNTER 2023-11-01 05:01 | Observation (INO) ==
--- NOTE | 2023-10-11 10:59 | PAT Medication Instructions ---
Medication Instructions Date of Service October 11, 2023 Home Medications calcium carbonate (Calcium 600) 600 mg PO QAM cholecalciferol (vitamin D3) 25 mcg (1,000 unit) capsule (Vitamin D3) 25 mcg PO QAM cyanocobalamin (vitamin B-12) 1,000 mcg tablet (Vitamin B-12) 1,000 mcg PO QAM folic acid 1 mg tablet 1 mg PO QAM multivitamin 1 tab PO QAM DO NOT take the morning of surgery calcium carbonate (Calcium 600) 600 mg PO QAM cholecalciferol (vitamin D3) 25 mcg (1,000 unit) capsule (Vitamin D3) 25 mcg PO QAM cyanocobalamin (vitamin B-12) 1,000 mcg tablet (Vitamin B-12) 1,000 mcg PO QAM folic acid 1 mg tablet 1 mg PO QAM multivitamin 1 tab PO QAM Other Notes NOTHING TO EAT OR DRINK AFTER MIDNIGHT. If you have any questions please call us at [phone] or [phone] or [phone] or [phone]
--- NOTE | 2023-10-18 13:37 | Anesthesiology Consultation ---
Date of Service October 18, 2023 Assessment & Plan (1) Encounter for pre-operative examination: - Outpatient joint assessment: Patient is currently scheduled for inpatient pathway. If re-evaluated and patient/surgeon requests outpatient pathway, patient is not ideal candidate for outpatient joint program from anesthesia standpoint. Chart Review Chart Review: Acceptable Risk for Surgery and Patient seen in Pre Admission Testing Teaching & Discussion Pre-Anesthesia Teaching/Discussion Notes: Instructed NPO after midnight before surgery, except medications with 15 cc of water. Medication instructions provided according to the PAT guidelines. History Surgery Operation Date: 11/01/23 07:00 Proposed Procedures p Left Knee Total Arthroplasty - Neri Riggs MD Height/Weight Height: 5 ft 6 in Weight: 99.79 kg Allergies Allergy/AdvReac Type Severity Reaction Status Date / Time No Known Allergies Allergy Verified 10/03/23 14:11 Medications Home Medications Medication Instructions Recorded Confirmed Last Taken calcium carbonate (Calcium 600) 600 mg PO QAM 03/09/22 10/03/23 03/17/22 08:00 cholecalciferol (vitamin D3) 25 25 mcg PO QAM 03/09/22 10/03/23 03/17/22 08:00 mcg (1,000 unit) capsule (Vitamin D3) cyanocobalamin (vitamin B-12) 1,000 mcg PO QAM 03/09/22 10/03/23 03/17/22 08:00 1,000 mcg tablet (Vitamin B-12) folic acid 1 mg tablet 1 mg PO QAM 03/09/22 10/03/23 03/17/22 08:00 multivitamin 1 tab PO QAM 03/09/22 10/03/23 03/17/22 08:00 Past Medical History Medical History Factor 5 Leiden mutation, heterozygous no current medications. History of COVID-29 May 2021. mild flu symptoms. no current issues. Prediabetes hx, no current issues, "recent blood work was great" Pulmonary embolism 2001 & 2004. had taken coumadin, no problems since. Sleep apnea hx --- weightloss, reports subsequent negative study and d/c CPAP Patient denies h/o stroke, seizures, heart attack, heart failure, HTN, or blood transfusions. Exercise / Class Metabolic Activity II 4-5 Yardwork/Stairs/Walk up hill (denies chest discomfort or shortness of breath with one flight of stairs) Past Family History Family History Mother FHx: pulmonary embolism Grandmother (Maternal) FHx: pulmonary embolism Other No family history of adverse response to anesthesia Past Surgical History Surgical History History of bilateral tubal ligation History of cholecystectomy History of colonoscopy History of Nanci-en-Y gastric bypass 01/2005 History of total right knee replacement S/P right knee arthroscopy S/P tonsillectomy Past Anesthesia History No Hx of Anesthesia Complications and No Family Hx of Anesthesia Complications History of PONV No Hx of Motion Sickness and History of PONV (denies needing scop patch) Social History Smoking Status: Never smoker Do You Dip or Chew Tobacco: No Hx Alcohol Use: Yes Alcohol type: wine alcohol intake frequency: holidays/special occasions only Hx Substance Use: No substance use type: does not use Review of Systems Patient denies chest pain, shortness of breath, dyspnea on exertion, reflux, fever, chills, cough, wheezing, or palpitations. Physical Exam Vital Signs Vitals BP 112/76 P 68 TEMP 98.2 SP02 95% on RA RESP 18 Physical Patient resting comfortably in chair in no acute distress, alert and oriented, responding appropriately throughout visit Full cervical extension range of motion without pain TMD < 3 finger breadths Mallampati Score 2 Dentition: partial removable plate upper front and lower front, denies chipped or loose teeth, caps/crowns, implants or bridges Lungs: normal respiratory effort. Good air movement, clear throughout to auscultation, no adventitious breath sounds Cardiac: regular rate and rhythm, no murmurs noted Carotid arteries: negative bruit bilat Lab Results Anesthesia Preop Results Results Anesthesia Widget: WBC 7.03 K/ul (4.8-10.8) 10/18/23 Hgb 12.9 g/dl (12.0-16.0) 10/18/23 Hct 40.6 % (37.0-47.0) 10/18/23 Plt 259 K/uL (130-400) 10/18/23 Na 141 mmol/L (136-145) 10/18/23 K 4.2 mmol/L (3.5-5.1) 10/18/23 Cl 109 mmol/L (98-107) H 10/18/23 CO2 27 mmol/L (21-32) 10/18/23 BUN 23 mg/dl (6-23) 10/18/23 Creat 0.89 mg/dl (0.6-1.2) 10/18/23 Glucose Level 90 mg/dl (70-99(Fasting)) 10/18/23 PT 10.3 Seconds (9.0-12.0) 10/18/23 PTT 25 Seconds (21-31) 10/18/23 INR 0.9 (0.9-1.1) 10/18/23 Urine Color Yellow 10/18/23 Urine Appearance Clear (Clear) 10/18/23 Urine pH 5.0 (4.5-7.5) 10/18/23 Urine Specific [place] 1.029 (1.000-1.030) 10/18/23 Urine Protein Negative (Negative) 10/18/23 Urine Glucose (UA) Negative (Negative) 10/18/23 Urine Ketones Trace (Negative) H 10/18/23 Urine Blood Negative (Negative) 10/18/23 Urine Nitrite Negative (Negative) 10/18/23 Urine Bilirubin Negative (Negative) 10/18/23 Urine Urobilinogen Negative (Negative) 10/18/23 Urine Leukocyte Esterase Negative (Negative) 10/18/23 Blood Type A Positive 10/18/23 Antibody Screen NEGATIVE 10/18/23 Testing Electrocardiogram Date: 10/18/23 NSR, rate 69 bpm Chest X-Ray Date: 10/18/23 No active disease in the chest.
--- NOTE | 2023-10-31 07:11 | History & Physical Report ---
Date of Service October 31, 2023 Assessment & Plan (1) Osteoarthritis of left knee: Plan: End-stage left knee osteoarthritis. Status post successful right knee replacement. Proceed with left total knee replacement. Osteoarthritis type: primary Qualified Code(s): M17.12 - Unilateral primary osteoarthritis, left knee History of Present Illness Chief Complaint: Left knee pain Primary Care Provider: Todd Barry DO 63-year-old female status post successful right knee replacement and has ongoing pain left knee due to end-stage medial compartment osteoarthritis and wants to proceed with left knee replacement. Patient denies headaches, sweats, fevers, chills, double vision, blurred vision, cough, sore throat, dysphagia, chest pain, sob, wheezing, n/v/d/c, numbness, tingling, fatigue, urinary symptoms, mood disorders. ROS positive for shortness of breath if she runs a short distance but not walking uphill or climbing up steps. History of PE and Leiden factor V positive. Patient wears partial denture. Allergies Allergy/AdvReac Type Severity Reaction Status Date / Time No Known Allergies Allergy Verified 10/03/23 14:11 Home Medications Medication Instructions Recorded Confirmed Type calcium carbonate (Calcium 600) 600 mg PO QAM 03/09/22 10/03/23 History cholecalciferol (vitamin D3) 25 25 mcg PO QAM 03/09/22 10/03/23 History mcg (1,000 unit) capsule (Vitamin D3) cyanocobalamin (vitamin B-12) 1,000 mcg PO QAM 03/09/22 10/03/23 History 1,000 mcg tablet (Vitamin B-12) folic acid 1 mg tablet 1 mg PO QAM 03/09/22 10/03/23 History multivitamin 1 tab PO QAM 03/09/22 10/03/23 History Past Med/Surg History Problem List (Updated 10/31/23 @ 07:10 by Neri Riggs MD) Osteoarthritis of left knee Primary osteoarthritis of right knee Encounter for pre-operative examination Medical History Prediabetes hx, no current issues, "recent blood work was great" Sleep apnea hx --- weightloss, reports subsequent negative study and d/c CPAP Factor 5 Leiden mutation, heterozygous no current medications. Pulmonary embolism 2001 & 2004. had taken coumadin, no problems since. History of COVID-29 May 2021. mild flu symptoms. no current issues. Surgical History History of total right knee replacement History of bilateral tubal ligation S/P right knee arthroscopy History of Nanci-en-Y gastric bypass 01/2005 History of colonoscopy History of cholecystectomy S/P tonsillectomy Family History Mother FHx: pulmonary embolism Grandmother (Maternal) FHx: pulmonary embolism Other No family history of adverse response to anesthesia Social History Smoking Status: Never smoker Second Hand Exposure: Yes (hx growing up); Do You Dip or Chew Tobacco: No; Hx Alcohol Use: Yes Alcohol type: wine Hx Substance Use: No Preferred Language: Iraqi Communication Ability: Effective Mail Carriers Supervisor Required: No Beliefs That Will Affect Care: None Current Living Situation: Spouse and Parent Feels Safe at Home: Yes Assistive Devices: Denture - Lower and Glasses Review of Systems All systems reviewed & are unremarkable except as noted in HPI & below Physical Exam Constitutional: WD/WN, vitals as above Respiratory: normal respiratory effort; no respiratory distress Cardiovascular: Rate/Rhythm: regular rate and regular rhythm Musculoskeletal: Left knee with varus alignment medial joint line tenderness mild effusion some lateral laxity with varus stress no medial pseudolaxity. 0 through 120 degrees range of motion. Right knee surgical scar no effusion 0 through 125 degrees range of motion stable knee. Skin: no rashes, warm and dry Neurologic: normal touch/pain/proprioception Psychiatric: A+Ox3, euthymic affect Results & Data Diagnostic Findings Left knee radiographs grade 4 [id number] medial compartment with subluxation the femur medial on the tibia has osteophytes and subchondral sclerosis and some moderate patellofemoral osteoarthritis consistent with end-stage osteoarthritis of the knee Code Status & VTE Plan VTE Prophylaxis Plan VTE Prophylaxis will be ordered: Yes
[2023-11-01] MEDS: LR 60ML/HR IV SCH (05:48)
[2023-11-01] MEDS: FAMOTIDINE 20 MG TAB PO SCH (05:49)
[2023-11-01] MEDS: CeleBREX 200 MG CAP PO SCH (05:49)
[2023-11-01] MEDS: ACETAMINOPHEN 500 MG TAB PO SCH ×2 (05:49→12:56)
[2023-11-01] MEDS: METOCLOPRAMIDE HCL 10 MG TABLET PO SCH (05:49)
[2023-11-01] MEDS: GABAPENTIN 600 MG DOSE PO SCH (05:49)
[2023-11-01] MEDS ORDERED: [UNRECOGNIZED DRUG - REMARK] INFIL SCH (06:00)
[2023-11-01] MEDS: LR 500ML BOLUS, THEN 15ML/HR IV SCH (06:03)
[2023-11-01] MEDS: dexAMETHasone**PF** 10 MG/ML VIAL IV SCH (06:04)
[2023-11-01] MEDS ORDERED: ROPIVACAINE 0.5% 5 MG/ML 30 ML VIAL ONE (06:16)
[2023-11-01] MEDS ORDERED: MIDAZOLAM HCL 1 MG/ML 2ML VIAL ONE (06:43)
[2023-11-01] MEDS ORDERED: ATROPINE SULFATE 0.1 MG/ML 10ML SYR IV PRN (06:44)
[2023-11-01] MEDS ORDERED: KETOROLAC 30 MG/ML VIAL IV PRN (06:44)
[2023-11-01] MEDS ORDERED: ePHEDrine sulfate 50 MG/ML AMP IV PRN (06:44)
[2023-11-01] MEDS ORDERED: fentaNYL citrate PF 100 MCG/2 ML VIAL IV PRN (06:44)
[2023-11-01] MEDS ORDERED: ONDANSETRON INJ 2 MG/ML 2 ML VIAL IV PRN ×2 (06:44→10:36)
--- NOTE | 2023-11-01 07:01 | History & Physical Bridge Note ---
Date of Service November 01, 2023 History & Physical Bridge Note I have examined the patient, reviewed the History & Physical and in the interval since the performance of the History & Physical I have noted the following changes of clinical significance: no changes noted
[2023-11-01] MEDS: TRANEXAMIC ACID 1,000 MG **IV Pre-op IV SCH (07:04)
[2023-11-01] MEDS: ceFAZolin 2000MG 2,000 MG/15 ML SYR IV SCH ×2 (07:21→15:36)
[2023-11-01] MEDS ORDERED: PROPOFOL IV EMULSION 10 MG/ML 20 ML VIAL IV ONE ×2 (07:31→09:11)
[2023-11-01] MEDS: ROPIVACAINE 0.5% HCL/PF 246 MG, Ketorolac (*for OR use only*) 30 MG in SODIUM CHLORIDE ... INFIL SCH (08:09)
[2023-11-01] MEDS: ORTHO JOINT ANESTHETIC ONE (08:09)
[2023-11-01] MEDS: TRANEXAMIC ACID 1,000 MG **IV Intra-op IV SCH (09:04)
--- NOTE | 2023-11-01 09:47 | Post Operative Brief Note ---
Immediate Post Op Note Date of Surgery November 01, 2023 Pre & Post Diagnosis Operation Date: 11/01/23 07:00 Pre-Op Diagnosis: Left Knee Osteoarthritis Post-Op Diagnosis: Left Knee Osteoarthritis I identified the patient and participated in the time-out.: Yes Procedure Operation Date: 11/01/23 07:00 Actual Procedures p Left Knee Total Arthroplasty(Left), lateral release- Neri Riggs MD Surgeon Neri Riggs MD [employer] [facility] Estimated Blood Loss 5 Findings Consistent with Post-Op Diagnosis Specimens Bone cuts Drains Hemovac Drain Anesthesia Type MAC Spinal Regional Complications none Disposition Disposition: Recovery Room Overlapping Procedure I was immediately available: during the entire case.
--- NOTE | 2023-11-01 10:01 | Operative Report ---
Post Operative Report Pre & Post Diagnosis Operation Date: 11/01/23 07:00 Pre-Op Diagnosis: Left Knee Osteoarthritis Post-Op Diagnosis: Left Knee Osteoarthritis I identified the patient and participated in the time-out.: Yes Procedure Operation Date: 11/01/23 07:00 Actual Procedures p Left Knee Total Arthroplasty(Left), lateral release- Neri Riggs MD Surgeon Neri Riggs MD Computer Help Desk Specialist Ortega MCCOY Estimated Blood Loss 5 Findings Consistent with Post-Op Diagnosis Specimens Bone cuts Drains 2 Hemovac Anesthesia Type MAC Spinal Regional Complications none Disposition Disposition: Recovery Room Indications 63-year-old female with chronic left knee pain failed conservative management. Radiographs demonstrate she has a varices [id number] medial compartment she ramachandran s moderate patellofemoral osteoarthritis. Patient has successful right knee replacement 2021. Patient wants proceed with left knee replacement. Description of Procedure Patient was taken to the operating room placed supine on the operating table and anesthetized under spinal MAC regional block anesthesia. Exam under anesthesia demonstrated 0 through 120 degrees range of motion no instability small to moderate effusion with a varus knee. A pneumatic tourniquet was placed about the thigh of the left lower extremity. The left lower extremity was prepped and draped in usual sterile fashion. The leg was elevated exsanguinated with an Esmarch bandage and the pneumatic tourniquet was raised to 325 mm mercury. An anterior incision was made across the left knee. The skin was incised longitudinally subcutaneous flaps were elevated and an incision was made through the medial retinaculum extending up into the mid third of the quadriceps tendon and extended down to the medial tibial tubercle. Intra-articular findings demonstrated medial compartment and patellofemoral osteoarthritis with [id number] medial compartment. The knee was exposed by excising the infrapatellar fat pad, excising the meniscal remnants and anterior cruciate ligament. Any inflamed synovial tissue was resected. The fat pad over the anterior femur was resected for placement of the component in that area. The lateral synovial bands were released. The femur was exposed. The custom femoral cutting block was pinned in position. The distal femoral cutting block was applied. The distal femoral cut was made with the oscillating saw. The size 7, 4-in-1 cutting block was placed. The anterior and posterior chamfer cuts were made. The knee was extended and a subperiosteal peel lateral release was performed around the patella. The patella width was measured and width was reproduced using freehand cut technique. The I did bias the implant toward the medial side to help with patellar tracking. A 29 Millimeter symmetrical patella was used. 3 drill holes are made for the pegs. The tibia was exposed. A custom tibial cutting block was positioned and drill holes were made for the cutting guide. Cutting guide was placed and the proximal cut was made with the oscillating saw. All osteophytes were resected. The lamina record pressman was used to assess ligamentous balance and the ligaments were balanced in extension and flexion. No releases were required. The tibia was reexposed and measured for a size D tibial component. This was externally rotated maximally in line with the tibial tubercle and the fixation pins were drilled. The proximal tibia was fashioned with the drill and punch. The size 7 CR femoral trial was inserted. The trial MC inserts were used. The 11 mm insert gave balanced ligaments through full range of motion. The patella tracked with some lateral tilt and lift off so I had to do a lateral release leaving the synovium intact and I preserved the lateral geniculate vessels. the trials were removed. The orthomix anesthetic cocktail was injected. The knee was then copiously irrigated with pulsatile lavage saline solution. The final components were cemented with Refobacin bone cement. The final components were Yanely persona 7 CR left femur, D left tibia, 11 left MC tibial polyethylene and a 29 mm patella. Xp erience was used debate the tibial component prior to placing the polyethylene. After the cement cured with the knee in full extension the Xperience was used to irrigate the knee thoroughly . 2 drains were brought out laterally and connected to a Hemovac. The quadriceps tendon and medial retinaculum were closed with interrupted #2 FiberWire distal quad tendon and around the medial patella in the area of the medial retinaculum and 1 suture at the level of the polyethylene and 1 suture at the apex of the split and quad repair proximally. A running locking oh strata fix suture was then used to repair the quadriceps tendon and medial retinaculum. The distal medial retinaculum was repaired with [id number] #1 Vicryl sutures. The knee was taken through a full range of motion which was 0 to 130 degrees and the repair was secure. The subcutaneous tissues were closed with 2-0 Vicryl sutures and running 3 oh strata fix and skin was closed with Prineo glue system.A Silverlon dressing was applied and the patient tolerated the procedure well. Ortega MCCOY my physician surgical physician assistant participated as international first officer and was an integral part in all aspects of the procedure, he assisted in soft tissue retraction, instrument management ,leg positioning, the closure, Silverlon dressings and Maxx wrap from the foot to the thigh and will participate in the postoperative care of the patient. I attest to the content of the Intraoperative Record and any orders documented therein. Any exceptions are noted below.
--- NOTE | 2023-11-01 10:16 | Anesthesiology Progress Note ---
Date of Service November 01, 2023 Anesthesia Post Procedure Vital Signs Vital Signs: Temp Pulse Resp BP Pulse Ox O2 Del Method 11/01/23 10:05 56 L 12 106/68 97 Room Air 11/01/23 09:55 60 14 105/66 95 Room Air 11/01/23 09:48 36.8 C 70 12 109/62 95 Room Air 11/01/23 05:38 36.6 C 62 20 106/77 96 Room Air Pain Intensity Left Knee: Pain Intensity: 1 Transfer of Care Handoff Completed per policy Notes Mental Status: alert / awake / arousable Patient Amnestic to Procedure: Yes Nausea / Vomiting: adequately controlled Pain: adequately controlled Airway Patency, RR, SpO2: stable & adequate BP & HR: stable & adequate Hydration State: stable & adequate Neuraxial Anesthesia: was administered and sensory block is resolving Anesthetic Complications: no major complications apparent
[2023-11-01] MEDS ORDERED: MAGNESIUM HYDROXIDE SUSP 30 ML UDC PO PRN (10:36)
[2023-11-01] MEDS ORDERED: diphenhydrAMINE Capsule 25 MG CAP PO PRN (10:36)
[2023-11-01] MEDS ORDERED: bisacodyL 10 MG SUPP PR PRN (10:36)
[2023-11-01] MEDS ORDERED: NALOXONE HCL 0.4 MG/1 ML VIAL/CARP IV PRN (10:36)
[2023-11-01] MEDS ORDERED: KETOROLAC TROMETHAMINE 15 MG/ML VIAL IV PRN (10:36)
[2023-11-01] MEDS ORDERED: ALUMINUM/MAGNESIUM SUSP 30 ML UDC PO PRN (10:36)
[2023-11-01] MEDS ORDERED: METOCLOPRAMIDE HCL INJ 5 MG/ML 2 ML VIAL IV PRN (10:36)
[2023-11-01] MEDS: SODIUM CHLORIDE 0.9% 1,000 ML IV SCH (10:48)
--- NOTE | 2023-11-01 11:05 | Consultation ---
Date of Consultation November 01, 2023 Assessment & Plan (1) Osteoarthritis of left knee: (2) Arthropathy of left knee: (3) Factor 5 Leiden mutation, heterozygous: POD 0 left total knee arthroplasty for Osteoarthrtis Medical history involves factor V Leiden; last PE in 2004; was previously on Coumadin which was stopped by her medical records analyst since last few years. Pain control PT OT eval Monitor CBC for Blood loss anemia Given her history of factor V Leiden and previous history of PE; she is at a higher risk than average for postoperative DVT and PE; patient is to be started on Xarelto 10 mg once a day starting tomorrow by primary team. Recommend continuing it postoperatively for total of 35 days. Full code DVT prophylaxis Xarelto Time spent evaluating patient, direct bedside care, chart review, placing orders, interpretation of diagnostic studies, discussion with consultants, patient, and family members, as well as other required patient management activities is 60 minutes Please note the above document was generated using voice recognition software. It may contain grammatical, syntax or spelling errors. Any formal questions or concerns about the content, text or information contained within the body of this dictation should be directly addressed to the provider for clarification History of Present Illness Reason for Consultation: Status post left knee total arthroplasty Attending Physician: Neri Riggs MD History of Present Illness Patient is a 63-year-old female who underwent left knee total arthroplasty on November 01, 2023 by orthopedic. Hospitalist team is consulted for comanagement. Medical history involves factor V Leiden; last PE in 2004; was previously on Coumadin which was stopped by her medical records analyst since last few years. History of prediabetes, ANGEL previously on CPAP Patient is lying in the bed comfortably; she is alert oriented x 3. She denies chest pain, shortness of breath, abdominal pain, weakness/numbness of any body part. Vital signs are stable and she is saturating well on room air. Allergies Allergy/AdvReac Type Severity Reaction Status Date / Time No Known Allergies Allergy Verified 11/01/23 05:37 Home Medications Medication Instructions Recorded Confirmed Type calcium carbonate (Calcium 600) 600 mg PO QAM 03/09/22 11/01/23 History cholecalciferol (vitamin D3) 25 25 mcg PO QAM 03/09/22 11/01/23 History mcg (1,000 unit) capsule (Vitamin D3) cyanocobalamin (vitamin B-12) 1,000 mcg PO QAM 03/09/22 11/01/23 History 1,000 mcg tablet (Vitamin B-12) folic acid 1 mg tablet 1 mg PO QAM 03/09/22 11/01/23 History multivitamin 1 tab PO QAM 03/09/22 11/01/23 History Patient History Medical History Prediabetes hx, no current issues, "recent blood work was great" Sleep apnea hx --- weightloss, reports subsequent negative study and d/c CPAP Factor 5 Leiden mutation, heterozygous no current medications. Pulmonary embolism 2001 & 2004. had taken coumadin, no problems since. History of COVID-29 May 2021. mild flu symptoms. no current issues. Surgical History History of total right knee replacement History of bilateral tubal ligation S/P right knee arthroscopy History of Nanci-en-Y gastric bypass 01/2005 History of colonoscopy History of cholecystectomy S/P tonsillectomy Family History Mother FHx: pulmonary embolism Grandmother (Maternal) FHx: pulmonary embolism Other No family history of adverse response to anesthesia Social History Smoking Status: Never smoker Second Hand Exposure: Yes (hx growing up); Do You Dip or Chew Tobacco: No; Tobacco Cessation Education Requested by Patient: No Hx Alcohol Use: Yes Alcohol type: wine Hx Substance Use: No Preferred Language: Vietnamese Communication Ability: Effective Infrastructure Director Required: No Beliefs That Will Affect Care: None Current Living Situation: Spouse and Parent Other Information That Helps Us Care for You: No Feels Safe at Home: Yes Safety Concerns: Feels Safe At This Time Assistive Devices: Denture - Lower and Glasses Assistive Devices Comment: lower partial plate Review of Systems Review of Systems: All systems reviewed & are unremarkable except as noted in Subjective Physical Exam Physical Exam: Constitutional: Awake, alert and oriented x 3; not in distress. Respiratory: normal respiratory effort, lungs clear to auscultation, no wheeze, rales, rhonchi. Normal insp/exp effort, no accessory muscle use Cardiovascular: RRR, no murmur, no edema Vessels: no JVD or carotid bruit Chest: normal inspection of chest Abdomen: normal bowel sounds, soft, nontender, no hepatosplenomegaly Musculoskeletal: Dressing intact on left leg. Patient able to wiggle her toes. Dorsalis pedis palpable. Sensation intact Skin: no rashes, warm and dry normal turgor Neurologic: PERRL, EOMI, accommodation nl, no face palsy, no dysarthria CN's II- XI intact bilaterally and moves all extremities Psychiatric: A+Ox3, euthymic affect Results & Data Vital Signs (Past 12 Hours) Vital Signs Temp Pulse Resp BP Pulse Ox O2 Del Method 11/01/23 10:15 36.4 C L 60 15 105/59 L 97 Room Air 11/01/23 10:05 56 L 12 106/68 97 Room Air 11/01/23 09:55 60 14 105/66 95 Room Air 11/01/23 09:48 36.8 C 70 12 109/62 95 Room Air 11/01/23 05:38 36.6 C 62 20 106/77 96 Room Air (1) Osteoarthritis of left knee Osteoarthritis type: primary Qualified Code(s): M17.12 - Unilateral primary osteoarthritis, left knee
--- NOTE | 2023-11-01 11:59 | XRay Report ---
XR knee LT 1 or 2V routine HISTORY: 63 years-old Female Surgical Post Op left knee arthroplasty COMPARISON: None TECHNIQUE: 2 views of the left knee FINDINGS: Total joint arthroplasty with patellar resurfacing. No acute fracture, dislocation or expected opaque foreign body. Expected postoperative soft tissue swelling with deep tissue air and surgical drainage catheter. IMPRESSION: Total joint arthroplasty with expected postoperative changes. ACT 112: Negative or not required by law. The above report was generated using voice recognition software. It may contain grammatical, syntax o r spelling errors. Electronically signed by: Tono Houston M.D. 11/01/2023 11:58 AM
[2023-11-01] MEDS: HYDROmorphone INJ 0.5 MG/0.5 ML SYR IV PRN (12:53)
--- OUTSIDE RECORDS SUMMARY | 2023-11-01 14:27 | External Medical Summary | Summary of Care ---
Author Name Unknown Organization [facility] Address [address] [address] [place] [address] Phone [phone] Care Team Providers Care Secondary Spanish Teacher Name Role Phone Asha Torrez DO, David Vincent Primary Care Provid er Reason for Visit * Reason Comments pre-op exam Dr. Riggs left kne e replacement on 11/01/23 Encounter Details Date Type Department Care Team (Latest Contact Info) Description 10/24/2023 8:00 AM EDT Office Visit [facility] [address] [place] [address] Todd Barry Jr., DO [address] [place] [address] Pre-op evaluation*; Osteoarthritis of left knee, unspecified osteoarthritis type Allergies No known active allergiesdocumented as of this encounter (statuses as of 10/24/2023) Medications Medication Sig Dispensed Refills Start Date End Date Status B COMPLEX 1 PO TABS one a day Activ e FERROUS SULFATE 325 (65 FE) MG PO TBEC 3 daily Active FOLIC ACID 1 MG PO TABS one a day Active MULTI-VITAMIN PO TABS one a day Act dwight CALCIUM + D 600-200 MG-UNIT PO TABS one a day Active aspirin 325 MG Tablet Take 1 Tablet by mouth in the morning. 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 History of pulmonary embolism 11/25/2019 documented as of this encounter (statuses as of 10/24/2023) Resolved Problems Problem Noted Date Diagnosed Date Resolved Date IFG (impaired fasting glucose) 11/24/2020 05/18/2021 documented as of this encounter (statuses as of 10/24/2023) Immunizations Name Administration Dates Next Due Seasonal Influenza Virus Vac cine, Unspecified Formulation 01/08/2021 Seasonal Influenza, PF, 6 M & above, IM , (FluLaval or Fluzone) 01/08/2021 documented as of this encounter Social History Tobacco Use Types Packs/Day Years Used Date Smoking Tobacco: Never Smokeless Tobacco: Never Tobacco Cessation:Counseling Given: No Alcohol Use Standard Drinks/Week Comments No 0 (1 standard drink = 0.6 oz pur e alcohol) PHQ-2 Answer Date Recorded PHQ Adult Total Score 0 07/13/2023 Hunger Vital Sign Answer Date Recorded Within the past 12 months, y ou worried that your food would run out before you got the money to buy more. Never true 07/13/19 24 Within the past 12 months, t he food you bought just didn't last and you didn't have money to get more. Never true 07/13/2023 Childcare Answer Date Recorded Do you feel overwhelmed with taking care of a child, family member or friend? No 07/13/2023 Does your family need help f inding childcare? (Household - for ages 0-17 years) Not on file 07/13/2023 Clothing Answer Date Recorded Have you been unable to get clothing when it was really needed? No 07/13/2023 Is your family able to get c lothes or diapers when needed? (Household - for ages 0-17 years) Not on file 07/13/2023 Personal Safety Answer Date Recorded Do you feel unsafe or have concerns for your saf ety? No 07/13/2023 Do you have concerns for you r family's safety? (Household - for ages 0-17 years) Not on file 07/13/2023 Utilities Answer Date Recorded Do you have trouble paying y our heating, water, or electric bill? No 07/13/2023 Is your family able to pay t he heat, water, or electric bill? (Household - for ages 0-17 years) Not on file 07/13/2023 Does your family have access to good internet? (Household - for ages 0-17 years) Not on file 07/13/2023 Employment Status Answer Date Recorded Are you unemployed or without regular income? No 07/13/2023 Does the household have a re gular source of income? (Household - for ages 0-17 years) Not on file 07/13/2023 Social Connections Answer Date Recorded How often do you feel lonely or isolated from th ose around you? Never 07/13/2023 Financial Resource Strain Answer Date R ecorded Do you have any trouble payi ng for your medications, or do you think you might in the future? No 07/13/2023 Does your family have troubl e paying for medicine? (Household - for ages 0-17 years) Not on file 07/13/2023 Transportation Needs Answer Date Record ed READ ONLY Do you have troubl e getting a ride to medical visits or work? Never True 07/13/2023 Does your family have a hard time getting a ride to doctors visits? (Household - for ages 0-17 years) Not on file 07/13/2023 Has lack of transportation k ept you from medical appointments, meetings, work, or from getting things needed for daily living? Check all that apply. (Adult - for ages 18 years and over) Not on file 07/13/2023 Do you (or your family) have trouble finding or paying for a ride (transportation)? (Household - for ages 0-17 years) Not on file 07/13/2023 Housing Stability Answer Date Recorded Do you currently live in a s helter or have no steady place to sleep at night? No 07/13/2023 READ ONLY Do you think you a re at risk of becoming homeless? No 07/13/2023 Does your family worry about paying for your home or becoming homeless? (Household - for ages 0-17 years) Not on file 0 07/13/2023 Are you homeless or worried that you might be in the future? (Adult - for ages 18 years and over) Not on file Are you (or your family) antonella eless or worried that you might be in the future? (Household - for ages 0-17 years) Not on file Food Insecurity Answer Date Recorded Do you need food for this week? No 07/13/2023 Are you able to get enough f ood for your family? (Household - for ages 0-17 years) Not on file 07/13/2023 Does your family need food t his week? (Household - for ages 0-17 years) Not on file 07/13/2023 Do you always have enough fo od for your family? (Household - for ages 0-17 years) Not on file 07/13/2023 Sex and Gender Information Value Date Recorded Sex Assigned at Female 11/25/2019 5:11 PM EDT Gender Identity Female 11/25/2019 5:11 PM EDT Sexual Orientation Choose not to disclose 2019 5:11 PM EDT Job Start Date Occupation Industry Not on file Not on file Not on file documented as of this encounter Last Filed Vital Signs Vital Sign Reading Time Taken Comments Blood Pressure 118/68 10/24/2023 7:53 AM EDT Pulse 56 10/24/2023 7:53 AM EDT Temperature 36.4 C (97.6 F) 10/24/2023 7:53 AM ED T Respiratory Rate 14 10/24/2023 7:53 AM EDT Oxygen Saturation 97% 10/24/2023 7:53 AM EDT Inhaled Oxygen Concentration - - Weight 101.2 kg (223 lb) 10/24/2023 7:53 AM EDT Height 167.6 cm (5' 6") 10/24/2023 7:53 AM EDT Body Mass Index 35.99 10/24/2023 7:53 AM EDT documented in this encounter Progress Notes * Todd Barry Jr., DO - 10/24/2023 8:09 AM EDT Subjective: Brook Rogers is a 63 year old female. Chief Complaint Patient presents with pre-op exam Dr. Riggs left knee replacement on 11/01/23 HPI: patient presents today for pre op evaluation for proposed left knee replacement. Had right done about 2 years ago. No CP or SOB. No personal or family history of problems with surgery or anesthesia in the past. Had testing done at [facility]- do not have access to review today. Was told by surgical team when to stop/hold medication and vitamins/supplements. No other new complaints. PHM: Patient Active Problem List Diagnosis History of gastric bypass Factor V deficiency (HCC) History of pulmonary embolism B12 deficiency Prediabetes Current Outpatient Medications Medication Sig Dispense Refill B COMPLEX 1 PO TABS one a day FERROUS SULFATE 325 (65 FE) MG PO TBEC 3 daily FOLIC ACID 1 MG PO TABS one a day MULTI-VITAMIN PO TABS one a day CALCIUM + D 600-200 MG-UNIT PO TABS one a day aspirin 325 MG Tablet Take 1 Tablet by mouth in the morning. Fish Oil 300 MG Oral Capsule No current facility-administered medications for this visit. Past Medical History: Diagnosis Date Factor V Leiden mutation (HCC) H/O tubal ligation History of cholecystectomy 1989 Pulmonary embolus (HCC) 2001, 2004 x 2 On Folic acid, MVI Sleep apnea CPAP Past Surgical History: Procedure Laterality Date BREAST LESION,OTHER,EXCISION Left 04/10/2010 Cyst COLONOSCOPY, DIAGNOSTIC (RECTUM) N/A 01/08/2021 diverticulosis sigmoid colon/recall 10 years/COLONOSCOPY FLEXIBLE PROXIMAL DIAGNOSTIC performed by Mira Arzate DO at ENDOSCOPY [facility] EGD, FLEXIBLE, DIAGNOSTIC 02/28/2012 mild-mod inflammation/UPPER GI ENDOSCOPY DIAGNOSTIC performed by Emmanuel Oreilly Jr., MD at ENDOSCOPY [facility] EGD, FLEXIBLE, DIAGNOSTIC 05/30/2012 normal/UPPER GI ENDOSCOPY DIAGNOSTIC performed by Emmanuel Oreilly Jr., MD at ENDOSCOPY [facility] GASTRIC BYPASS FOR OBESITY 2004 KNEE ARTHROSCOPY/SURGERY Right 03/2022 R knee replacement - completed with U PATIENT EDU, TUBAL LIGATION 1998 REMOVE TONSILS & ADENOIDS, AGE 12+ Family History Problem Relation Name Age of Onset Other (Other) Mother DVT Other (Other) Sister DVT Breast Cancer No significant family history Uterine cancer No significant family history Ovarian cancer No significant family history Colon cancer No significant family history Review of patient's allergies indicates: No Known Allergies Extensive ROS Constitutional (f/c/wt/vision/hearing): Negative Resp (cough/sob/miller): Negative CV (cp/palp/fluttering/diaphoresis/miller/pnd):Negative GI (n/v/d/hrtburn): Negative Endo (hair/cold or heat intol/ 3 p's): Negative Neuro (shaking/weak/fatigu/parasthesi/): Negative Skin (rash/easy bruis/xerosis): Negative (nocturia/hesit/drib/sexual review): Negative Objective: BP 118/68 | Pulse 56 | Temp 36.4 C (97.6 F) | Resp 14 | Ht 1.676 m (5' 6") | Wt 101.2 kg (223 lb) | LMP 04/29/2011 | SpO2 97% | BMI 35.99 kg/m | BSA 2.17 m Physical Exam: General: alert, healthy, no distress Head: Normocephalic, No masses, lesions, tenderness or abnormalities Eye Exam: PERRLA, EOMI, Conjunctiva are pink and non-injected, fundi benign, sclera clear Ears: External ears normal, Canals clear, TM's Normal Oropharynx: no exudate, no erythema and lips, buccal mucosa, and tongue normal Neck: supple, no adenopathy, no bruits, thyroid normal size, non-tender, without nodularity Heart: regular rate & rhythm, no murmurs and no gallops Lungs: clear to auscultation Abdomen: abdomen soft, nontender, normal bowel sounds and no masses or organomegaly Extremities: no edema, no clubbing or cyanosis Neuro Exam: alert & oriented x 3 with fluent speech, no focal motor/sensory deficits, gait normal, reflexes normal and symmetric, Skin: skin color, texture, turgor are normal, no rashes or significant lesions ASSESSMENT: ICD-10-CM 1. Pre-op evaluation Z01.818 2. Osteoarthritis of left knee, unspecified osteoarthritis type M17.12 PLAN: (Z01.818) Pre-op evaluation (primary encounter diagnosis) (M17.12) Osteoarthritis of left knee, unspecified osteoarthritis type Plan: Medically optimized for proposes surgery. Will send surgeon letter as such. Follow Up: Return if symptoms worsen or fail to improve. Return to the office as ordered. Return sooner if having any other problems or concerns. Todd Barry Jr, DO documented in this encounter Nursing Notes * Meron Lancaster LPN - 10/24/2023 7:53 AM EDT Chief Complaint Patient presents with pre-op exam Dr. Riggs left knee replacement on 11/01/23 documented in this encounter Plan of Treatment Upcoming Encounters Date Type Department Care Team (Late st Contact Info) Description 12/04/2023 8:00 AM EDT Office Visit [facility] [address] [place] [phone] Todd Barry Jr., DO [address] [place] [address] 09/25/2024 12:50 PM EDT Office Visit Dermatology, [facility] [address] [place] [address] Amber Romeo PA-C [address] [place] [phone] Scheduled Procedures Name Priority Associated Diagnoses Date/Ti me COLONOSCOPY FLEXIBLE PROXIMA L DIAGNOSTIC Recall Screening for colon cancer Health Maintenance Due Date Last Done Comments HIV Screening 10/12/1974 Hepatitis C Screening 10/12/1977 DTaP,Tdap,and Td Vaccines (1 - Tdap) 10/12/1978 Cologuard 10/12/2004 Fecal Occult Blood Test 10/12/2004 Sigmoidoscopy 10/12/2004 Zoster Vaccines (1 of 2) 10/12/2009 COVID-19 Vaccine (1 - 2022- season) 2022 Influenza Vaccine (FLU shot) (#1) 2023 01/08/2021, 01/08/2021 Mammogram 02/24/2024 02/23/2023, 10/2020, 11/26/2018, Additional history exists HbA1c 05/17/2024 05/17/2023, 03/3 , 11/24/2020, Additional history exists Depression Screening 07/12/2024 07/13/2023 Lipid Panel 07/14/2025 07/14/2020, 05/2018, 10/22/2018, Additional history exists Pap Smear 07/17/2026 07/18/2023, 05/10/2011 Cervical Cancer Screening 07/17/2028 HPV/Co-Test 07/17/2028 07/18/2023 Colonoscopy 01/08/2031 01/08/2021, 01/08/2021 Colorectal Cancer Screening 01/08/2031 HPV (Gardasil) Vaccine Aged Out No lo nger eligible based on patient's age to complete this topic Hepatitis B Vaccine Aged Out No longe r eligible based on patient's age to complete this topic MENINGOCOCCAL (MENACTRA/MENVEO) Aged Out No longer eligible based on patient's age to complete this topic Pneumococcal Vaccine: Pediatrics (0 to 5 Years) and At-Risk Patients (6 to 64 Years) Aged Out No longer eligible based on patient's age to complete this topic documented as of this encounter Medical Devices Not on filedocumented as of this encounter Visit Diagnoses Diagnosis Pre-op evaluation- Primary Preoperative examination, unspecified Osteoarthritis of left knee, unspecified osteoarthritis type documented in this encounter Care Teams Secondary Spanish Teacher Relationship Specialty Start Date End Date Todd Barry Jr., DO [address] [place] [phone] PCP - General Family Medicine 11/25/19 documented as of this encounter
--- OUTSIDE RECORDS SUMMARY | 2023-11-01 14:27 | External Medical Summary | Summary of Care ---
Author Name Unknown Organization [facility] Address [address] [facility] [place] [address] Phone [phone] Care Team Providers Care Commercial Leasing Agent Name Role Phone Asha Torrez DO, David Vincent Primary Care Provid er Reason for Visit * Reason Comments pre-op exam Dr. Riggs left kne e replacement on 11/01/23 Encounter Details Date Type Department Care Team (Latest Contact Info) Description 10/24/2023 8:00 AM EDT Office Visit [facility] [address] [place] [address] Todd Barry Jr., DO [address] [place] [address] Pre-op evaluation*; Osteoarthritis of [...] - 10/24/2023 8:09 AM EDT Subjective: Brook Roegrs is a 63 year old female. Chief Complaint Patient presents with pre-op exam Dr. Riggs left knee replacement on 11/01/23 HPI: patient presents today for pre op evaluation for proposed left knee replacement. Had right done about 2 years ago. No CP or SOB. No personal or family history of problems with surgery or anesthesia in the past. Had testing done at [facility]- do not have access to review today. [...] performed by Mira Arzate DO at ENDOSCOPY [facility] EGD, FLEXIBLE, DIAGNOSTIC 02/28/2012 mild-mod inflammation/UPPER GI ENDOSCOPY DIAGNOSTIC performed by Emmanuel Oreilly Jr., MD at ENDOSCOPY [facility] EGD, FLEXIBLE, DIAGNOSTIC 05/30/2012 normal/UPPER GI ENDOSCOPY DIAGNOSTIC performed by Emmanuel Oreilly Jr., MD at ENDOSCOPY [facility] GASTRIC BYPASS FOR OBESITY 2004 KNEE [...] Description 12/04/2023 8:00 AM EDT Office Visit [facility] [address] [place] [phone] Todd Barry Jr., DO [address] [place] [address] 09/25/2024 12:50 PM EDT Office Visit Dermatology, [facility] [address] [place] [address] Amber Romeo PA-C [address] [place] [phone] Scheduled Procedures Name Priority Associated Diagnoses Date/Ti [...] type documented in this encounter Care Teams Commercial Leasing Agent Relationship Specialty Start Date End Date Todd Barry Jr., DO [address] [place] [phone] PCP - General Family Medicine 11/25/19 documented as of this encounter
[2023-11-01] MEDS: TRANEXAMIC ACID / 0.7% NACL 1,000 MG/100 ML BAG IV SCH (15:31)
[2023-11-01] MEDS: DOCUSATE SODIUM 100 MG CAP PO SCH (20:45)
[2023-11-01] MEDS: SENNA 8.6 MG TAB PO SCH (20:45)
[2023-11-01] MEDS: oxyCODONE HCL IR 5 MG TAB (IMMEDIATE RELEASE) PO PRN (22:04)
[2023-11-02 06:05] LABS: Mean Corpuscular Hemoglobin 28.2 pg (25.0-34.0); Mean Corpuscular Hgb Conc 31.6 g/dL (32.0-36.0); Mean Corpuscular Volume 89.2 fL (80.0-100.0); Platelet Count 245 K/uL (130-400); RDW Coefficient of Variation 12.8 % (11.5-14.5); RDW Standard Deviation 41.6 fL (36.4-46.3); Red Blood Count 4.26 M/uL (4.20-5.40); White Blood Count 14.21 K/ul (4.8-10.8)
[2023-11-02 06:22] LABS: Calcium 8.5 mg/dl (8.6-10.3); Creatinine Clr Calc Pharmacy 88.9 ml/min; Est GFR (African American) 94.6 ml/min; Est GFR (Non-African American) 81.6 ml/min; Potassium 4.6 mmol/L (3.5-5.1)
[2023-11-02] MEDS: RIVAROXABAN 10 MG TABLET PO SCH (07:47)
[2023-11-02] MEDS: CHOLECALCIFEROL 25 MCG (1000 UNITS) TAB PO SCH (07:47)
[2023-11-02] MEDS: CALCIUM CARBONATE 1250MG TAB PO SCH (07:47)
[2023-11-02] MEDS: CYANOCOBALAMIN (B-12) 500 MCG TABLET PO SCH (07:47)
[2023-11-02] MEDS: FOLIC ACID 1 MG TAB PO SCH (07:47)
[2023-11-02] MEDS: MULTIVITAMIN TAB PO SCH (07:47)
--- NOTE | 2023-11-02 08:18 | Orthopedic Progress Note ---
Date of Service November 02, 2023 Assessment & Plan (1) Status post left knee replacement: Plan: Postop day 1 left knee replacement. Patient doing well aside from ongoing drainage from Hemovac left knee. Patient does not have home health set up so recommending that she continue admission for another day until drainage subsides. Should continue with PT OT. Plan discharge in a.m. Admission and Anticipated Discharge Date Admission Date: November 01, 2023 Subjective Doing well with pain control only taking Tylenol for pain. Review of Systems Review of Systems: No chest pain shortness of breath other symptoms Physical Exam Physical Exam: Dressing intact. Still having active drainage from Hemovac. Distal circulation sensorimotor exam all intact. Results & Data Vital Signs (Past 12 Hours) Vital Signs Temp Pulse Resp BP BP Pulse Ox O2 Del Method 11/02/23 07:10 36.5 C 56 L 16 117/77 98 Room Air 11/02/23 03:03 36.5 C 60 12 118/76 96 Room Air 11/01/23 22:52 36.5 C 60 12 120/76 95 Room Air Diagnostic Findings 450 cc drainage since surgery
[2023-11-02] MEDS ORDERED: POLYETHYLENE (MIRALAX) 17 GM PACK PO PRN (09:06)
--- NOTE | 2023-11-02 17:47 | Hospitalist Progress Note ---
Date of Service November 02, 2023 Assessment & Plan (1) Osteoarthritis of left knee: (2) Arthropathy of left knee: (3) Factor 5 Leiden mutation, heterozygous: Plan: Left Knee Osteoarthritis S/P Left Knee Total Arthroplasty by Dr. Riggs on 11/01/23 Leukocytosis likely secondary to dexamethasone Pain control, wound care, activity per primary team Appreciate orthopedics input Bowel regimen to prevent constipation Continue PT OT Started on Xarelto for anticoagulation Monitor CBC H/O Factor V Leiden last PE in 2004 Previously on Coumadin--discontinued by her speech language therapist about 10 years ago DVT Px: Xarelto Code Status Full code Admission and Anticipated Discharge Date Admission Date: November 01, 2023 Subjective Patient is seen and examined at bedside Left knee pain at surgical site is controlled Had PT evaluation earlier today Offers no other complaints Denies any chest pain, dyspnea, dizziness, nausea, vomiting, abdominal pain Review of Systems Review of Systems: All systems reviewed & are unremarkable except as noted in Subjective Physical Exam Physical Exam: Physical Exam: Vitals signs as noted above General Appearance:Obese, no apparent distress Head: normocephalic, Atraumatic Eyes: normal inspection, EOMI Neck: supple, Trachea midline Respiratory/Chest: Normal breath sounds, CTA, No accessory muscle use Cardiovascular: S1, S2, No murmur Abdomen/GI:Soft, Non tender, Bowel sounds present Extremities/Musculoskeletal:normal inspection, Left Knee in surgical dressing Neurologic/Psych:AAOX3, grossly no focal neurological deficits Skin: normal color, warm Results & Data Results & Data Vital Signs (Past 12 Hours) Vital Signs Temp Pulse Resp BP Pulse Ox O2 Del Method 11/02/23 14:23 36.7 C 61 16 116/76 97 Room Air 11/02/23 11:42 36.7 C 64 16 131/84 98 Room Air 11/02/23 07:10 36.5 C 56 L 16 117/77 98 Room Air Laboratory Results Short CBC 11/02/23 Range/Units 05:30 WBC 14.21 H (4.8-10.8) K/ul Hgb 12.0 (12.0-16.0) g/dl Hct 38.0 (37.0-47.0) % Plt Count 245 (130-400) K/uL BMP 11/02/23 05:30 Sodium 141 Potassium 4.6 Chloride 108 H Carbon Dioxide 29 BUN 20 Creatinine 0.77 Glucose 131 H Calcium 8.5 L (1) Osteoarthritis of left knee Osteoarthritis type: primary Qualified Code(s): M17.12 - Unilateral primary osteoarthritis, left knee
[2023-11-03 06:16] LABS: Hematocrit (blood only) 35.8 % (37.0-47.0); Hemoglobin 11.1 g/dl (12.0-16.0); Mean Corpuscular Volume 90.2 fL (80.0-100.0); Mean Platelet Volume 12.1 fL (9.4-12.4); Platelet Count 227 K/uL (130-400); RDW Coefficient of Variation 13.2 % (11.5-14.5); RDW Standard Deviation 43.5 fL (36.4-46.3); Red Blood Count 3.97 M/uL (4.20-5.40); White Blood Count 9.11 K/ul (4.8-10.8)
[2023-11-03 06:35] LABS: BUN Creatinine Ratio 28.2 (10-20); Calcium 8.5 mg/dl (8.6-10.3); Creatinine Clr Calc Pharmacy 87.8 ml/min; Est GFR (African American) 93.1 ml/min; Est GFR (Non-African American) 80.3 ml/min; Potassium 4.2 mmol/L (3.5-5.1)
--- NOTE | 2023-11-03 08:26 | Orthopedic Progress Note ---
Date of Service November 03, 2023 Assessment & Plan (1) Status post left knee replacement: Plan: Postop day 2 left knee replacement. Should continue with PT OT. Plan discharge after PT. Patient is going to do outpatient physical therapy at [facility]. Follow-up in 2 weeks. Admission and Anticipated Discharge Date Admission Date: November 01, 2023 Subjective Little more pain as expected today. Otherwise doing well. Review of Systems Review of Systems: Feeling well in general. Physical Exam Physical Exam: Dressing changed Hemovac pulled and dressing looks good with no blood staining at all under Silverlon. Distal circulation sensorimotor exam all normal. Results & Data Vital Signs (Past 12 Hours) Vital Signs Temp Pulse Pulse Resp BP Pulse Ox O2 Del Method 11/03/23 07:52 36.6 C 66 12 125/80 96 Room Air 11/03/23 07:03 36.7 C 64 16 137/69 97 Room Air 11/02/23 21:12 36.7 C 67 18 131/78 97 Room Air
--- NOTE | 2023-11-03 12:06 | Communication Note ---
Date of Service: November 03, 2023 Patient could not be evaluated by me on day of discharge.
== END 2023-11-03 10:52 | disposition home or self-care (01) ==
LOC: ASU 05:01 → 3E 05:01